=== PATIENT | male | born 1990 | race African-American/Black ===

== ENCOUNTER 2024-05-10 09:51 | Inpatient (IN) | payer MEDICAID, OTHER, SELFPAY ==
[~2024-05-10] VITALS: Ht 172.7 cm; Wt 66.0 kg
[2024-05-10] MEDS ORDERED: OLANZapine ORAL DISINTEGRATING TAB 5MG PO PRN (10:05)
[2024-05-10 10:44] LABS: HEMATOCRIT 45.3 % (42.0-52.0); MEAN CORPUSCULAR HEMOGLOBIN 30.7 pg (27.0-33.0); MEAN CORPUSCULAR HGB CONC 33.1 g/dl (32.0-36.5); MEAN CORPUSCULAR VOLUME 92.8 fl (80.0-96.0); PLATELET COUNT, AUTOMATED 325 10^3/uL (150-450); RED BLOOD COUNT 4.88 10^6/uL (4.30-6.10); WHITE BLOOD COUNT 5.4 10^3/uL (4.0-10.0)
[2024-05-10] MEDS ORDERED: HOME MED LIST COMPLETE! XX SCH (10:55)
[2024-05-10 11:10] LABS: AMPHETAMINES LEVEL URINE NEGATIVE (NEGATIVE); BARBITURATES URINE NEGATIVE (NEGATIVE); BENZODIAZEPINES URINE NEGATIVE (NEGATIVE); COCAINE METABOLITE URINE NEGATIVE (NEGATIVE); METHADONE URINE NEGATIVE (NEGATIVE); OPIATES URINE NEGATIVE (NEGATIVE)
[2024-05-10 11:11] LABS: PHENCYCLIDINE URINE NEGATIVE (NEGATIVE)
[2024-05-10 11:12] LABS: ETHYL ALCOHOL (ETHANOL) < 0.003 % (0.000-0.010)
[2024-05-10 11:14] LABS: ALBUMIN 4.6 G/DL (3.2-5.2); ALKALINE PHOSPHATASE 82 U/L (40-129); ALT/SGPT 18 U/L (7.0-40); AST/SGOT 27 U/L (<34); BILIRUBIN,DIRECT 0.2 MG/DL (<0.4); BILIRUBIN,TOTAL 0.7 MG/DL (0.3-1.2); BLOOD UREA NITROGEN 19 MG/DL (9-23); CALCIUM LEVEL 9.3 MG/DL (8.5-10.1); CARBON DIOXIDE LEVEL 24 MMOL/L (20-31); CHLORIDE LEVEL 106 MMOL/L (98-107); CREATININE FOR GFR 0.92 MG/DL (0.70-1.30); GLOMERULAR FILTRATION RATE > 60.0 (>60); GLUCOSE, FASTING 82 MG/DL (60-100); POTASSIUM SERUM 3.8 MMOL/L (3.5-5.1); SALICYLATE LEVEL < 3.0 MG/DL (<30); SODIUM LEVEL 139 MMOL/L (136-145); TOTAL PROTEIN 7.6 G/DL (5.7-8.2)
[2024-05-10 11:15] LABS: CANNABINOIDS URINE POSITIVE (NEGATIVE)
[2024-05-10] MEDS: HALOPERIDOL LACTATE 5MG/ML VIAL IM ONE (14:57)
[2024-05-10] MEDS: diphenhydrAMINE 50MG/ML VIAL IM ONE (14:57)
[2024-05-10] MEDS: LORazepam 2 MG/ML 1ML VIAL IM ONE (14:57)
[2024-05-10 18:13] VITALS: BP 123/82; TEMP 96.4; O2SAT 99
[2024-05-10] MEDS ORDERED: IBUPROFEN 400MG TAB PO PRN (20:55)
[2024-05-10] MEDS ORDERED: MAALOX 30 ML SUSP *UDC PO PRN (20:55)
[2024-05-10] MEDS ORDERED: diphenhydrAMINE 25MG CAP PO PRN (20:55)
[2024-05-10] MEDS ORDERED: ACETAMINOPHEN 325 MG TAB PO PRN (20:55)
[2024-05-10] MEDS ORDERED: OLANZapine 5 MG TAB PO PRN (20:55)
[2024-05-10] MEDS ORDERED: MOM 30ML SUSPENSION UDC PO PRN (20:55)
[2024-05-11] MEDS ORDERED: UNRESOLVED CLARIFICATION ENTRY XX SCH (00:01)
[2024-05-11 16:06] VITALS: BP 126/62; TEMP 97.9; O2SAT 100
[2024-05-11] MEDS: DIVALPROEX 500MG *ER* TAB PO SCH (21:11)
[2024-05-11] MEDS: OLANZapine 5 MG TAB PO SCH (21:11)
[2024-05-12 07:02] VITALS: BP 134/64; TEMP 98.6; O2SAT 99
[2024-05-12 15:28] VITALS: BP 111/70; TEMP 98.3; O2SAT 99
[2024-05-12] MEDS: traZODone 50 MG TAB PO PRN (21:14)
[2024-05-13 06:44] VITALS: BP 111/67; TEMP 97.4; O2SAT 100
[2024-05-13] MEDS: DIVALPROEX 500MG *ER* TAB PO SCH (08:55)
[2024-05-13] MEDS: OLANZapine 5 MG TAB PO SCH (08:55)
[2024-05-13 16:09] VITALS: BP 132/85; TEMP 97.2; O2SAT 100
[2024-05-14 15:17] VITALS: BP 126/80; TEMP 97; O2SAT 98
[2024-05-14] MEDS: traZODone 100 MG TAB PO SCH (20:16)
[2024-05-14] MEDS: clonazePAM 1 MG TAB PO SCH (20:16)
[2024-05-14] MEDS: DIVALPROEX 250MG *ER* TAB PO SCH (20:17)
[2024-05-14] MEDS ORDERED: OLANZapine 10 MG TAB PO SCH (21:00)
[2024-05-15 06:46] VITALS: BP 132/66; TEMP 97.6; O2SAT 100
[2024-05-15 15:09] VITALS: BP 134/86; TEMP 97.6; O2SAT 97
[2024-05-16 06:53] VITALS: BP 100/58; TEMP 97.8; O2SAT 98
[2024-05-16] MEDS: HALOPERIDOL DECANOATE 100 MG/ML 1ML VIAL IM SCH (11:06)
[2024-05-16 14:56] VITALS: BP 109/72; TEMP 98.7; O2SAT 100
[2024-05-17 06:53] VITALS: BP 116/64; TEMP 97.3; O2SAT 100
[2024-05-17 15:37] VITALS: BP 109/59; TEMP 98; O2SAT 98
[2024-05-18 06:28] VITALS: BP 106/68; TEMP 98; O2SAT 96
[2024-05-19 06:26] VITALS: BP 121/68; TEMP 97.6; O2SAT 100
[2024-05-19 15:01] VITALS: BP 141/76; TEMP 98.3; O2SAT 100
[2024-05-20 06:31] VITALS: BP 106/73; TEMP 98; O2SAT 99
[2024-05-20 15:48] VITALS: BP 111/67; TEMP 98.6; O2SAT 97
[2024-05-21 06:28] VITALS: BP 113/62; TEMP 98.4; O2SAT 97
[2024-05-21] MEDS ORDERED: HALO10AM IM (12:15)
[2024-05-21] MEDS ORDERED: TRAZ-257 PO (12:15)
[2024-05-21] MEDS ORDERED: DEPA500T2 PO (12:15)
[2024-05-21] MEDS ORDERED: HYDR-3363 PO (12:15)
[2024-05-21] MEDS ORDERED: HALO10TA20 PO (12:15)
[2024-05-21] MEDS ORDERED: CHLOR25TA PO (12:15)
[2024-05-21] MEDS ORDERED: DIVALPROEX 500MG *ER* TAB PO SCH (21:00)
== END 2024-05-21 14:59 | disposition home or self-care (01) | DRG 750 ==
LOC: M ED 09:51 → M ED INP 13:06 → M PSY 17:59
PROVIDERS: ADMIT Internal Medicine; ATTEND Internal Medicine
DX: F25.0 Schizoaffective disorder, bipolar type (principal); Z91.148 Patient's other noncompliance with medication regimen for other reason; F41.9 Anxiety disorder, unspecified

== ENCOUNTER 2024-07-05 11:34 | Emergency (ER) | payer OTHER, MEDICAID ==
[~2024-07-05] VITALS: Ht 175.3 cm; Wt 81.8 kg
[~2024-07-05 11:34] MED LIST: CHLOR25TA PO; DEPA500T2 PO; HALO10AM IM; HALO10TA20 PO; HYDR-3363 PO; TRAZ-257 PO
[2024-07-05 14:06] VITALS: BP 129/74; TEMP 98.9; O2SAT 100
[2024-07-05] MEDS: IBUPROFEN 600MG TAB PO ONE (14:44)
== END 2024-07-05 14:45 | disposition home or self-care (01) ==
LOC: M ED 11:34
DX: S62.341A Nondisplaced fracture of base of second metacarpal bone, left hand, initial encounter for closed fracture (principal); Y92.019 Unspecified place in single-family (private) house as the place of occurrence of the external cause; Y93.9 Activity, unspecified; Y99.9 Unspecified external cause status; F31.9 Bipolar disorder, unspecified; F17.210 Nicotine dependence, cigarettes, uncomplicated; F12.10 Cannabis abuse, uncomplicated; Z79.899 Other long term (current) drug therapy

== ENCOUNTER → 2024-09-06 | Outpatient (CLI) | payer OTHER | LOC: M SOG 06:59 | PROVIDERS: ATTEND Physician Assistant | DX: S62.331D Displaced fracture of neck of second metacarpal bone, left hand, subsequent encounter for fracture with routine healing (principal) ==